=== PATIENT | male | born 1960 | race Caucasian/White ===

== ENCOUNTER 2018-10-15 11:05 | Emergency (ER) | payer MEDICAID ==
--- NOTE | 2018-10-15 12:25 | EDM.PDOC ---
ED HPI GENERAL MEDICAL PROBLEM - General Chief Complaint: Fever Stated Complaint: SOB,LIGHTHEADED,FEVER CHILLS Time Seen by Provider: 10/15/18 11:45 Source of Information: Reports: Patient History Limitations: Reports: No Limitations - History of Present Illness INITIAL COMMENTS - FREE TEXT/NARRATIVE: 58-year-old male with a fever, cough, generalized malaise and weakness for the past 48 hours. He also has a sore throat. Chills, no nausea but decreased appetite. He has a significant cough. He did not receive an influenza vaccine. Onset: Gradual Duration: Day(s): (2 days) Associated Symptoms: Reports: Cough, Fever/Chills, Loss of Appetite, Malaise, Weakness. Denies: Shortness of Breath Neck Pain Score (Numeric/FACES): 6 - Related Data Allergies Allergy/AdvReac Type Severity Reaction Status Date / Time venom-honey bee Allergy Severe Anaphylactic Verified 10/15/18 11:40 [bee venom (honey bee)] Shock gabapentin [From Neurontin] AdvReac Stomach Verified 10/15/18 11:40 Ache Home Meds: Home Meds Cholecalciferol (Vitamin D3) [Vitamin D3] 5,000 unit PO DAILY 09/19/13 [History] Fluticasone Propionate [Flonase] 1 spray NASBOTH DAILY 09/19/13 [History] Vitamin B Complex [B Complex] 1 each PO DAILY 09/19/13 [History] EPINEPHrine [Epipen 2-Guru] 0.3 ml IM ASDIRECTED PRN 07/24/18 [History] Multivitamin-Min/Iron/FA/Vit K [Multi-Day Plus Minerals Tablet] 1 tab PO DAILY 07/24/18 [History] atorvaSTATin Calcium [Lipitor] 20 mg PO BEDTIME 07/24/18 [History] Tumeric 1 tab PO DAILY 10/15/18 [History] Past Medical History Cardiovascular History: Reports: High Cholesterol Gastrointestinal History: Reports: GERD, Hiatal Hernia Musculoskeletal History: Reports: Arthritis, Fracture, Neck Pain, Chronic - Infectious Disease History Infectious Disease History: Reports: Chicken Pox, Measles, Mumps - Past Surgical History Head Surgeries/Procedures: Reports: None Cardiovascular Surgical History: Reports: None GI Surgical History: Reports: Colonoscopy, EGD, Lilia Fundoplication Other GI Surgeries/Procedures: lilia fundoplication Neurological Surgical History: Reports: C-Spine Other Neurological Surgeries/Procedures: 2 neck fusions Musculoskeletal Surgical History: Reports: Other (See Below) Other Musculoskeletal Surgeries/Procedures:: 2 neck fusions, according to patient Social & Family History - Family History Family Medical History: Noncontributory - Tobacco Use Smoking Status *Q: Former Smoker Used Tobacco, but Quit: Yes Month/Year Tobacco Last Used: 1 1/2 years ago - Caffeine Use Caffeine Use: Reports: Coffee - Recreational Drug Use Recreational Drug Use: No ED ROS GENERAL - Review of Systems Review Of Systems: See Below Constitutional: Reports: Fever, Chills, Malaise, Decreased Appetite HEENT: Reports: Throat Pain Respiratory: Reports: Cough. Denies: Shortness of Breath Cardiovascular: Denies: Chest Pain GI/Abdominal: Denies: Abdominal Pain, Nausea, Vomiting : Reports: No Symptoms Musculoskeletal: Reports: Muscle Pain (Generalized body aches) Skin: Reports: No Symptoms Neurological: Reports: Headache (Mild headache) Psychiatric: Reports: No Symptoms ED EXAM, GENERAL - Physical Exam Exam: See Below Exam Limited By: No Limitations General Appearance: Alert, No Apparent Distress (Looks uncomfortable but not distressed) Throat/Mouth: Other (Mild pharyngeal erythema is present) Neck: No: Lymphadenopathy (R), Lymphadenopathy (L) Respiratory/Chest: No Respiratory Distress, Lungs Clear Cardiovascular: Regular Rate, Rhythm. No: Tachycardia GI/Abdominal: Soft, Non-Tender Extremities: Normal Inspection Neurological: Alert, Oriented Psychiatric: Normal Affect, Normal Mood Skin Exam: Warm, Dry Course - Vital Signs Last Recorded V/S: Last Vital Signs Temp 100.2 F 10/15/18 13:37 Pulse 92 10/15/18 13:37 Resp 16 10/15/18 13:37 BP 141/81 H 10/15/18 13:37 Pulse Ox 95 10/15/18 13:37 - Orders/Labs/Meds Orders: Active Orders 24 hr Category Date Time Status CULTURE STREP A CONFIRMATION [RM] Routine Lab 10/15/18 11:59 Results STREP SCRN A RAPID W CULT CONF [RM] Routine Lab 10/15/18 11:59 Results Labs: Laboratory Tests 10/15/18 10/15/18 Range/Units 13:02 13:02 WBC 7.6 (4.5-11.0) K/uL RBC 4.62 (4.30-5.90) M/uL Hgb 15.2 H (12.0-15.0) g/dL Hct 44.5 (40.0-54.0) % MCV 96 (80-98) fL MCH 33 H (27-31) pg MCHC 34 (32-36) % Plt Count 244 (150-400) K/uL Neut % (Auto) 76 H (36-66) % Lymph % (Auto) 11 L (24-44) % [place] % (Auto) 11 H (2-6) % Eos % (Auto) 2 (2-4) % Baso % (Auto) 1 (0-1) % Sodium 137 L (140-148) mmol/L Potassium 4.7 (3.6-5.2) mmol/L Chloride 102 (100-108) mmol/L Carbon Dioxide 26 (21-32) mmol/L Anion Gap 13.7 (5.0-14.0) mmol/L BUN 14 (7-18) mg/dL Creatinine 0.9 (0.8-1.3) mg/dL Est Cr Clr Drug Dosing 75.83 mL/min Estimated GFR (MDRD) > 60 (>60) Glucose 94 (74-106) mg/dL Calcium 8.8 (8.5-10.1) mg/dL Total Bilirubin 0.4 (0.2-1.0) mg/dL AST 22 (15-37) U/L ALT 33 (12-78) U/L Alkaline Phosphatase 74 (46-116) U/L Total Protein 7.8 (6.4-8.2) g/dL Albumin 3.8 (3.4-5.0) g/dL Globulin 4.0 H (2.3-3.5) g/dL Albumin/Globulin Ratio 1.0 L (1.2-2.2) Meds: Medications Discontinued Medications Generic Name Dose Route Start Last Admin Trade Name Freq PRN Reason Stop Dose Admin Azithromycin 1,000 mg 10/15/18 12:46 10/15/18 12:51 Zithromax PO 10/15/18 12:47 1,000 mg ONETIME ONE Administration Ibuprofen 600 mg 10/15/18 12:47 10/15/18 12:52 Motrin PO 10/15/18 12:48 600 mg ONETIME ONE Administration - Re-Assessments/Exams Free Text/Narrative Re-Assessment/Exam: 10/15/18 12:25 Rapid strep was obtained, as well as influenza antigens and a two-view chest x- ray. 10/15/18 12:42 Strep is negative, influences are negative, and chest x-ray was negative. Because of the negative viral tests, Zithromax will be used to cover atypicals. Patient is encouraged to rest, push fluids, anti-inflammatories for pain and fever, and return if worsening in the next few days. 10/15/18 12:47 When talking with the patient about discharge, he admitted that he's been feeling increasingly fatigued and tired for the last 2 months. He has not seen his primary provider during this time. He'll be given 600 mg of ibuprofen, 1000 mg of by mouth Zithromax, and a CBC and CMP were obtained. 10/15/18 13:24 CBC and CMP were all reassuring, white count normal and hemoglobin actually slightly elevated. Complete chemistry profile normal. Patient will be placed on a course of Zithromax, encouraged to get rest and fluids and return if worsening. Departure - Departure Time of Disposition: 13:33 Disposition: Home, Self-Care 01 Condition: Fair Clinical Impression: Bronchitis - Discharge Information Instructions: Acute Bronchitis, Adult, [id number] Referrals: Gabriel Fowler MD [Primary Care Provider] - Forms: ED Department Discharge Care Plan Goals: Rest and fluids next few days, ibuprofen as needed for fever and muscle pain. Take antibiotic as prescribed and consider rechecking in 7-10 days if not improving satisfactorily. Return anytime sooner if worsening despite treatment. - My Orders Last 24 Hours: My Active Orders 10/15/18 11:59 CULTURE STREP A CONFIRMATION [RM] Routine STREP SCRN A RAPID W CULT CONF [] Routine - Assessment/Plan Last 24 Hours: My Active Orders 10/15/18 11:59 CULTURE STREP A CONFIRMATION [RM] Routine STREP SCRN A RAPID W CULT CONF [] Routine
--- NOTE | 2018-10-15 12:36 | CRLCR ---
INDICATION: COUGH, FEVER TECHNIQUE: Chest 2 views. COMPARISON: None. FINDINGS: Cardiovascular and mediastinum: Heart size and vasculature are normal in caliber and appearance. Mediastinum is within normal limits. Lungs and pleural spaces: Lungs are clear. No sign of infiltrate or mass. No sign of pleural effusion. No pneumothorax. Bones and soft tissues: No significant findings. IMPRESSION: Unremarkable chest. Dictated by: Gokul Cool MD @ 10/15/2018 12:35:56 (Electronically Signed)
[2018-10-15] MEDS ORDERED: Azithromycin 250 MG Tab PO ONE (12:46)
[2018-10-15] MEDS ORDERED: Ibuprofen 600 MG Tab PO ONE (12:47)
[2018-10-15 13:39] VITALS: BP 141/81
== END 2018-10-15 13:40 | disposition home or self-care (01) ==
LOC: JP.ED 11:05
DX: J40 Bronchitis, not specified as acute or chronic (principal); E78.00 Pure hypercholesterolemia, unspecified; K21.9 Gastro-esophageal reflux disease without esophagitis; Z79.899 Other long term (current) drug therapy; Z87.891 Personal history of nicotine dependence; Z91.030 Bee allergy status; Z88.8 Allergy status to other drugs, medicaments and biological substances
CPT/HCPCS: 36415; 71046; 80053; 85025; 87081; 87430; 87804; 99285; A9270

== ENCOUNTER 2019-07-08 16:21 | Emergency (ER) | payer MEDICAID ==
--- NOTE | 2019-07-08 16:59 | EDM.PDOC ---
<OfficerGerman - Last Filed: 07/08/19 16:57> ED HPI GENERAL MEDICAL PROBLEM - General Chief Complaint: Back Pain or Injury Stated Complaint: CHEST PAINS Time Seen by Provider: 07/08/19 16:45 Source of Information: Reports: Patient, RN Notes Reviewed History Limitations: Reports: No Limitations - History of Present Illness INITIAL COMMENTS - FREE TEXT/NARRATIVE: 58-year-old gentleman presents emergency department with a complaint of chest pain, he states initially started back pain earlier this morning and then progressed into his chest the chest pain started about an hour prior to presentation to the emergency department does feel short of breath no nausea no diaphoresis no cardiac history remote history of tobacco use. Took aspirin prior to arrival declines any pain medication at this time back and chest Pain Score (Numeric/FACES): 3 - Related Data Allergies Allergy/AdvReac Type Severity Reaction Status Date / Time venom-honey bee Allergy Severe Anaphylactic Verified 07/08/19 16:36 [bee venom (honey bee)] Shock gabapentin [From Neurontin] AdvReac Stomach Verified 07/08/19 16:36 Ache Home Meds: Home Meds Cholecalciferol (Vitamin D3) [Vitamin D3] 5,000 unit PO DAILY 09/19/13 [History] Fluticasone Propionate [Flonase] 1 spray NASBOTH DAILY 09/19/13 [History] Vitamin B Complex [B Complex] 1 each PO DAILY 09/19/13 [History] EPINEPHrine [Epipen 2-Guru] 0.3 ml IM ASDIRECTED PRN 07/24/18 [History] Multivitamin-Min/Iron/FA/Vit K [Multi-Day Plus Minerals Tablet] 1 tab PO DAILY 07/24/18 [History] Tumeric 1 tab PO DAILY 10/15/18 [History] Past Medical History HEENT History: Reports: Sinusitis Cardiovascular History: Reports: High Cholesterol Gastrointestinal History: Reports: GERD, Hiatal Hernia Musculoskeletal History: Reports: Arthritis, Fracture, Neck Pain, Chronic, Other (See Below) Other Musculoskeletal History: carpal tunnel - Infectious Disease History Infectious Disease History: Reports: None - Past Surgical History Head Surgeries/Procedures: Reports: None HEENT Surgical History: Reports: None Cardiovascular Surgical History: Reports: None GI Surgical History: Reports: Colonoscopy, EGD, Ilia Fundoplication Other GI Surgeries/Procedures: ilia fundoplication Neurological Surgical History: Reports: C-Spine Other Neurological Surgeries/Procedures: 2 neck fusions Musculoskeletal Surgical History: Reports: Other (See Below) Other Musculoskeletal Surgeries/Procedures:: 2 neck fusions, according to patient Social & Family History - Family History Family Medical History: Noncontributory - Tobacco Use Smoking Status *Q: Former Smoker Used Tobacco, but Quit: Yes Month/Year Tobacco Last Used: 3 years - Caffeine Use Caffeine Use: Reports: Coffee - Recreational Drug Use Recreational Drug Use: No ED ROS GENERAL - Review of Systems Review Of Systems: See Below Constitutional: Reports: No Symptoms. Denies: Diaphoresis HEENT: Reports: No Symptoms Respiratory: Reports: Shortness of Breath Cardiovascular: Reports: Chest Pain GI/Abdominal: Reports: No Symptoms : Reports: No Symptoms Musculoskeletal: Reports: Back Pain Skin: Reports: No Symptoms ED EXAM, GENERAL - Physical Exam Exam: See Below Exam Limited By: No Limitations General Appearance: Alert, WD/WN, No Apparent Distress Neck: Normal Inspection, Supple, Non-Tender, Full Range of Motion Respiratory/Chest: No Respiratory Distress, Lungs Clear, Normal Breath Sounds, No Accessory Muscle Use, Other (Tenderness to palpation over left pectoral muscle) Cardiovascular: Regular Rate, Rhythm, No Murmur GI/Abdominal: Soft, Non-Tender Course - Vital Signs Last Recorded V/S: Last Vital Signs Temp 36.7 C 07/08/19 16:29 Pulse 94 07/08/19 18:26 Resp 16 07/08/19 16:57 BP 153/102 H 07/08/19 18:26 Pulse Ox 96 07/08/19 18:26 - Orders/Labs/Meds Orders: Active Orders 24 hr Category Date Time Status Cardiac Monitoring [RC] .As Directed Care 07/08/19 16:49 Active EKG Documentation Completion [RC] ASDIRECTED Care 07/08/19 16:50 Active EKG 12 Lead [EK] Stat Ther 07/08/19 16:50 Ordered Labs: Laboratory Tests 07/08/19 07/08/19 07/08/19 Range/Units 16:55 16:55 19:01 WBC 10.5 (4.5-11.0) K/uL RBC 4.34 (4.30-5.90) M/uL Hgb 14.5 (12.0-15.0) g/dL Hct 42.2 (40.0-54.0) % MCV 97 (80-98) fL MCH 33 H (27-31) pg MCHC 34 (32-36) % Plt Count 258 (150-400) K/uL Neut % (Auto) 62 (36-66) % Lymph % (Auto) 25 (24-44) % [place] % (Auto) 8 H (2-6) % Eos % (Auto) 5 H (2-4) % Baso % (Auto) 1 (0-1) % Sodium 138 L (140-148) mmol/L Potassium 4.1 (3.6-5.2) mmol/L Chloride 102 (100-108) mmol/L Carbon Dioxide 25 (21-32) mmol/L Anion Gap 15.1 H (5.0-14.0) mmol/L BUN 19 H (7-18) mg/dL Creatinine 1.2 (0.8-1.3) mg/dL Est Cr Clr Drug Dosing 59.08 mL/min Estimated GFR (MDRD) > 60 (>60) Glucose 100 (74-106) mg/dL Calcium 8.7 (8.5-10.1) mg/dL Total Bilirubin 0.2 (0.2-1.0) mg/dL AST 27 (15-37) U/L ALT 55 (12-78) U/L Alkaline Phosphatase 80 (46-116) U/L Troponin I < 0.017 < 0.017 (0.000-0.056) ng/mL Total Protein 7.4 (6.4-8.2) g/dL Albumin 3.6 (3.4-5.0) g/dL Globulin 3.8 H (2.3-3.5) g/dL Albumin/Globulin Ratio 1.0 L (1.2-2.2) Meds: Medications Discontinued Medications Generic Name Dose Route Start Last Admin Trade Name Freq PRN Reason Stop Dose Admin Ketorolac Tromethamine 60 mg 07/08/19 17:46 07/08/19 18:50 Toradol IM 07/08/19 17:47 60 mg ONETIME ONE Administration Departure - Departure Disposition: Home, Self-Care 01 Clinical Impression: Chest wall pain HTN (hypertension) Qualifiers: Hypertension type: essential hypertension Qualified Code(s): I10 - Essential ( primary) hypertension Instructions: Chest Wall Pain, [id number], Managing Your Hypertension Referrals: Gabriel Fowelr MD [Primary Care Provider] - Forms: ED Department Discharge Additional Instructions: Follow up with Dr. Fowler regarding your BP. Take naproxen 2 every 12 hrs with food for pain relief, next dose after midnight tonight. Add acetaminophen for added relief as needed. Ice your knee until numb several times a day and avoid kneeling on it. Sepsis Event Note - Evaluation Sepsis Screening Result: No Definite Risk - Focused Exam Vital Signs: Vital Signs Temp Pulse Resp BP Pulse Ox 07/08/19 18:26 94 153/102 H 96 07/08/19 17:56 86 177/104 H 97 07/08/19 17:26 88 152/107 H 95 07/08/19 16:57 72 16 166/96 H 95 07/08/19 16:29 36.7 C 72 16 167/104 H 97 Date Exam was Performed: 07/08/19 Time Exam was Performed: 16:57 <Marco Morales G - Last Filed: 07/08/19 19:49> EKG INTERPRETATION EKG Date: 07/08/19 Time: 16:25 Rhythm: NSR Rate (Beats/Min): 72 [place]: Normal P-Wave: Present QRS: Normal ST-T: Normal QT: Normal Comparison: No Change Course - Vital Signs Text/Narrative:: Toradol helped pain a lot. Departure - Departure Time of Disposition: 19:47 Condition: Good Sepsis Event Note - Focused Exam Date Exam was Performed: 07/08/19 Time Exam was Performed: 19:47
--- NOTE | 2019-07-08 17:32 | CRLCR ---
INDICATION: Chest pain TECHNIQUE: Chest 2 views COMPARISON: October 15, 2018 FINDINGS: Cardiovascular and mediastinum: Heart size and vasculature are normal in caliber and appearance. Lungs and pleural spaces: Lungs are clear. No sign of infiltrate or mass. No sign of pleural effusion. No pneumothorax. Bones and soft tissues: No significant findings. IMPRESSION: No acute findings and no significant changes from the prior exam. Dictated by Shiva De Paz MD @ 07/08/2019 5:31:18 PM Dictated by: Shiva De Paz MD @ 07/08/2019 17:31:21 (Electronically Signed)
[2019-07-08] MEDS ORDERED: Ketorolac 60 MG/2 ML SDV IM ONE (17:46)
[2019-07-08 18:35] VITALS: BP 153/102; PULSE 94
== END 2019-07-08 19:53 | disposition home or self-care (01) ==
LOC: JP.ED 16:21
DX: R07.89 Other chest pain (principal); I10 Essential (primary) hypertension; E78.00 Pure hypercholesterolemia, unspecified; K21.9 Gastro-esophageal reflux disease without esophagitis; Z87.891 Personal history of nicotine dependence; Z79.899 Other long term (current) drug therapy; Z91.030 Bee allergy status; Z88.8 Allergy status to other drugs, medicaments and biological substances
CPT/HCPCS: 36415; 71046; 80053; 84484; 85025; 93005; 96372; 99285; J1885

== ENCOUNTER 2024-03-23 08:01 | Emergency (ER) | payer MEDICAID ==
[2024-03-23 08:20] VITALS: BP 169/100; PULSE 70
== END 2024-03-23 09:39 | disposition home or self-care (01) ==
LOC: JP.ED 08:01
DX: M54.2 Cervicalgia (principal); M54.6 Pain in thoracic spine; I10 Essential (primary) hypertension; F17.210 Nicotine dependence, cigarettes, uncomplicated; Z79.899 Other long term (current) drug therapy; Z91.030 Bee allergy status; Z88.9 Allergy status to unspecified drugs, medicaments and biological substances
CPT/HCPCS: 99283

== ENCOUNTER 2025-06-18 22:50 | Emergency (ER) | payer MEDICAID ==
[2025-06-18 23:27] VITALS: BP 126/76; PULSE 67
== END 2025-06-18 23:29 | disposition home or self-care (01) ==
LOC: JP.ED 22:50
DX: M54.2 Cervicalgia (principal); I10 Essential (primary) hypertension; F17.200 Nicotine dependence, unspecified, uncomplicated; Z91.030 Bee allergy status; Z88.8 Allergy status to other drugs, medicaments and biological substances; Z79.899 Other long term (current) drug therapy
CPT/HCPCS: 99283